=== PATIENT | male | born 1980 ===

== ENCOUNTER 2018-09-03 09:23 | Outpatient (CLI) | payer BC ==
--- NOTE | 2018-09-03 11:03 | CT ---
ABDOMEN CT WITH CONTRAST PELVIC CT WITH CONTRAST: History: Upper abdominal pain radiating down the left thigh x one month. Comparison: None. FINDINGS: ABDOMEN CT: Lung bases are clear. Heart size is normal. No pericardial effusion. The descending thoracic aorta an d abdominal aorta has normal caliber. No periaortic fat stranding. Portal vein is patent. Unremarkable gallbladder. Liver, spleen, pancreas and adrenal glands have appropriate enhancement. No gastrohepatic, retrocrural or pericrural lymphadenopathy. Symmetric enhancement of the kidneys. Bilaterally, no obstructive uropathy. Subcentimeter hypodensity in the left cortex is too small to characterize but is statistically favored to be a cyst. No mesenteric mass, lymphadenopathy, free air or free fluid. Gastric mucosa, duodenum and multiple normal caliber small bowel loops are noted. Ileocecal junction is normal. Normal caliber appendix. Cecum, ascending colon, transverse colon, proximal descending col on are unremarkable. Limited evaluation of the remainder of the left hemicolon due to adequate contra st opacification. Occasional diverticulum. No diverticulitis. Normal caliber appendix. CT PELVIS: NO mass, lymphadenopathy, free air or free fluid. Unremarkable urinary bladder. No lytic or blastic lesions in the osseous structures. IMPRESSION: No acute abnormality of the abdomen or pelvis. POS: [facility]
[2018-09-03] MEDS ORDERED: ISOVUE-370 76%-LOCM 1 ML ONE (11:26)
== END 2018-09-03 09:24 | disposition home or self-care (01) ==
LOC: BICCT 09:23
PROVIDERS: ATTEND Internal Medicine
DX: R10.10 Upper abdominal pain, unspecified (principal)
CPT/HCPCS: 74177; Q9966